=== PATIENT | male | born 1980 | race African-American/Black ===

== ENCOUNTER 2018-06-11 00:31 | Emergency (ER) | payer OTHER ==
[~2018-06-11] VITALS: Ht 182.9 cm; Wt 108.9 kg
[2018-06-11 00:50] VITALS: BP 139/94
[2018-06-11] MEDS ORDERED: CEPHALEXIN500 MG ORAL (01:46)
--- NOTE | 2018-06-11 01:47 | Emergency Room Report ---
History of Present Illness General Chief Complaint: Laceration Source: Patient Present Illness HPI Is a 37-year-old male with no cerumen past medical history. He presents with chief complaint of laceration to the right index finger. Over 24 hours ago he fell and landed on some glass. He said there is a glass in the tip of his finger. No other injury. Denies any fever chills but denies any nausea vomiting. Said his tetanus up-to-date. Allergies: Coded Allergies: No Known Allergies (Unverified , 06/11/18) Patient History Past Medical History: see triage record, old chart reviewed Past Surgical History: none Social History: Reports: smoking Immunizations: UTD Reviewed Nursing Documentation: PMH: Agreed; PSxH: Agreed Nursing Documentation-PMH Past Medical History: No Stated History Review of Systems Eye: Denies: eye pain, blurred vision ENT: Denies: ear pain, nose congestion, throat swelling Respiratory: Denies: cough, shortness of breath Cardiovascular: Denies: chest pain, palpitations Gastrointestinal: Denies: abdominal pain, diarrhea, nausea, vomiting Musculoskeletal: Denies: back pain, joint pain Skin: Denies: rash Neurological: Denies: headache, numbness Endocrine: Denies: increased thirst, increased urine Hematologic/Lymphatic: Denies: easy bruising All Other Systems: negative except mentioned in HPI Physical Exam Vital Signs Date Time Temp Pulse Resp B/P (MAP) Pulse Ox O2 Delivery O2 Flow Rate FiO2 06/11/18 00:40 98.8 92 18 139/94 99 Room Air vitals normal Sp02 EP Interpretation: reviewed, normal General Appearance: well appearing, no apparent distress, alert Head: normocephalic, atraumatic Eyes: bilateral eye PERRL, bilateral eye EOMI ENT: hearing grossly normal, normal pharynx Neck: full range of motion, supple, no meningismus Respiratory: chest non-tender, lungs clear, normal breath sounds Cardiovascular #1: regular rate, rhythm, no murmur Gastrointestinal: normal bowel sounds, non tender, no mass, no organomegaly, no bruit, non-distended Musculoskeletal: back normal, gait/station normal, normal range of motion, other - Right index finger: 1 cm laceration to the volar aspect of the tip of the finger. No obvious foreign body. Full range of motion of the MCP, PIP, DIP joint. Neurologic: alert, oriented x3 Psychiatric: mood/affect normal Skin: warm/dry Medical Decision Making Diagnostic Impression: Primary Impression: Laceration Additional Impression: Foreign body (FB) in soft tissue ER Course Patient with a possible foreign body and laceration to the index of the finger. Patient was not very tolerant of procedure to remove foreign body. I injected the area with 1% lidocaine without epinephrine. He still complaining of pain in that area. I try to see if I can explore the wound to remove the foreign body. He would not let me injecting more lidocaine. He was very jumpy. He refuse further treatment. I explained to him that he may increase the risk for infection because of retained foreign body. We'll discharge home with antibiotics. Last Vital Signs Date Time Temp Pulse Resp B/P (MAP) Pulse Ox O2 Delivery O2 Flow Rate FiO2 06/11/18 00:50 98.8 92 18 139/94 99 Room Air Status: unchanged Disposition: HOME, SELF-CARE Condition: Stable Scripts Cephalexin* (KEFLEX*) 500 Mg Capsule 500 MG ORAL TID, #21 CAP Prov: Juan M Hyde MD 06/11/18 Referrals: NOT CHOSEN IPA/,REFERRING (PCP) Additional Instructions: You may have a foreign body in your finger. This may increase her risk for infection. Follow-up with your doctor in 2-3 days for recheck. Return if worse. Juan M Hyde MD Jun 11, 2018 01:47
[2018-06-11 01:52] VITALS: BP 139/94
== END 2018-06-11 01:53 | disposition home or self-care (01) ==
LOC: EMR 00:49
DX: S61.220A Laceration with foreign body of right index finger without damage to nail, initial encounter (principal); W01.110A Fall on same level from slipping, tripping and stumbling with subsequent striking against sharp glass, initial encounter; Y92.9 Unspecified place or not applicable
CPT/HCPCS: 99282